=== PATIENT | female | born 1980 | race Caucasian/White ===

== ENCOUNTER 2019-11-22 14:31 | Emergency (ER) | payer OTHER ==
[~2019-11-22] VITALS: Ht 172.7 cm; Wt 68.0 kg
== END 2019-11-22 22:37 | disposition home or self-care (01) ==
LOC: ER 14:31 → CPU-OBS 15:22 → ER 15:22 → EDBD 15:22 → ER 22:37
DX: R07.89 Other chest pain (principal)